=== PATIENT | female | born 1965 | race Caucasian/White ===

== ENCOUNTER → 2017-11-21 15:32 | Outpatient (CLI) | payer SELFPAY ==
[2017-11-21 17:00] LABS: Absolute Lymphocyte Count 1.98 X10^3/ul (0.83-4.51); Absolute Neutrophil Count 3.4 X10^3/uL (2.0-7.7); Basophil# 0.02 X10^3/uL; Basophil% 0.3 % (0-1); Eosinophil# 0.13 X10^3/uL; Eosinophils% 2.2 % (0-5); Hematocrit 39.2 % (37-47); Hemoglobin 13.2 g/dl (12.0-15.0); Lymphocyte # 1.98 X10^3/ul (4.0); Mean Corp Hgb Conc 33.7 g/gl (32-36); Mean Corpuscular Hgb 30.7 pg (27.0-32.0); Mean Corpuscular Volume 91.2 fL (81-99); Mean Platelet Vol. 10.1 fl (6.2-12.0); Monocyte# 0.43 X10^3/uL; Monocyte% 7.2 % (0-10); Neutrophil # 3.43 X10^3/uL (2.7-7.7); Neutrophil % 57.1 % (47-70); Platelet Count 285 K/mm3 (150-450); RBC Distribution Width CV 13.3 % (11.6-14.6)
[2017-11-21 17:09] LABS: POSITIVE COUNT NO; POSITIVE DIFFERENTIAL NO; POSITIVE MORPHOLOGY NO
[2017-11-21 17:20] LABS: ALB/GLOB Ratio 0.9 RATIO (0.9-2.4); AST(SGOT) 32 U/L (15-37); Alanine Aminotransfer ALT/SGPT 67 U/L (13-56); Albumin, Serum 3.8 g/dL (3.2-5.0); Alkaline Phosphatase 119 U/L (45-117); Anion Gap 8 (5-15); BUN 13 mg/dL (7-18); BUN/Creat Ratio 19.5 RATIO (10-20); Calcium,Total 9.2 mg/dL (8.5-10.1); Chloride 105 mmol/L (98-107); Creatinine, Serum 0.67 mg/dL (0.55-1.02); EST Glomerular Filtration Rate 99 mL/min (>60); Est Glom Filt Rate - Afr Amer 119 mL/min (>60); Globulin 4.2 g/dL (2.2-4.2); Glucose 110 mg/dL (74-106); Potassium 3.4 mmol/L (3.5-5.1); Sodium Level 142 mmol/L (136-145); Thyroid Stim Hormone (TSH) 1.35 uIU/mL (0.358-3.74)
[2017-11-22 08:54] LABS: Vitamin D,25 Hydroxy 24.3 ng/mL (19.95-100.01)
[2017-11-23 13:25] LABS: Hep C Antibodies 0.2 s/co ratio (0.0-0.9)
== END ==
PROVIDERS: Family Provider Family Medicine Geriatric Medicine; PCP Family Medicine Geriatric Medicine; Visit Provider Family Medicine Geriatric Medicine
DX: E55.9 Vitamin D deficiency, unspecified (principal); R53.83 Other fatigue; Z13.89 Encounter for screening for other disorder
CPT/HCPCS: 36415; 80053; 82306; 84443; 85025; 86803

== ENCOUNTER → 2017-11-28 09:09 | Outpatient (CLI) | payer SELFPAY ==
--- NOTE | 2017-11-28 09:13 | US_ITS ---
STUDY: ABDOMINAL ULTRASOUND - RIGHT UPPER QUADRANT REASON FOR VISIT: Female, 52 years old. Abnormal liver function tests. TECHNIQUE: Ultrasound evaluation of the right upper quadrant was performed with real-time and static connor-scale imaging. TECHNICAL QUALITY: Adequate. COMPARISON: None. FINDINGS: Liver: The liver measures 13.7 cm. There is normal echogenicity of the liver. The bile ducts are within normal limits. There is hepatic color flow. The direction of portal flow is hepatopetal. There is no demonstrated mass lesion. Gallbladder: Normal distended gallbladder. The gallbladder wall measures 2.0 mm. There is a negative sonographic Pinto's sign. There is no pericholecystic fluid. There are no gallstones. Common Bile Duct (C.B.D.): The common bile duct measures 3.5 mm. Pancreas: Normal size of the head, body and tail of the pancreas. There is normal echogenicity of the pancreas. There is no demonstrated pancreatic mass or cyst. Right Kidney: Normal size of the right kidney. The right kidney measures 10.7 cm x 5.3 cm x 4.8 cm. Normal renal cortex. The right cortex measures 1.5 cm. There is no demonstrated renal mass or cyst. There is no right hydronephrosis. Findings suggestive of 2 small nonobstructive intrarenal calculi the larger measuring 7 mm x 5 mm x 4 mm. US/Abdomen Limited IMPRESSION: Normal right upper quadrant ultrasound examination. Findings suggest left two tiny nonobstructive right intrarenal calculi. Electronically Signed: Remi Lopez MD at 16:06 EST Tel [phone], Service support ,
== END ==
PROVIDERS: Family Provider Family Medicine Geriatric Medicine; PCP Family Medicine Geriatric Medicine; Visit Provider Family Medicine Geriatric Medicine
DX: R79.89 Other specified abnormal findings of blood chemistry (principal)
CPT/HCPCS: 76705

== ENCOUNTER → 2019-10-15 10:59 | Outpatient (CLI) | payer OTHER, SELFPAY ==
[2014-05-10 20:55] VITALS: BMI 24.2
[2019-10-15 12:43] LABS: Absolute Lymphocyte Count 2.12 X10^3/uL (0.83-4.51); Absolute Neutrophil Count 3.7 X10^3/uL (2.0-7.7); Basophil# 0.05 X10^3/uL; Basophil% 0.8 % (0-1); Eosinophil# 0.24 X10^3/uL; Eosinophils% 3.7 % (0-5); Hematocrit 39.5 % (37-47); Hemoglobin 13.1 g/dL (12.0-15.0); Lymphocyte # 2.12 X10^3/ul (4.0); Lymphocyte % 32.5 % (19-41); Mean Corp Hgb Conc 33.2 g/dL (32-36); Mean Corpuscular Hgb 29.5 pg (27.0-32.0); Monocyte% 6.1 % (0-10); NRBC Flagged by Analyzer 0 % (0-5); Neutrophil # 3.69 X10^3/uL (2.7-7.7); Neutrophil % 56.4 % (47-70); Platelet Count 326 K/mm3 (150-450); RBC Distribution Width CV 12.9 % (11.6-14.6); RBC Distribution Width SD 42.1 fl (35.1-43.9); Red Blood Count 4.44 M/mm3 (4.2-5.4); White Blood Count 6.5 K/mm3 (4.4-11.0)
[2019-10-15 13:04] LABS: AST(SGOT) 36 U/L (15-37); Alanine Aminotransfer ALT/SGPT 68 U/L (13-56); Albumin, Serum 3.8 g/dL (3.2-5.0); Alkaline Phosphatase 133 U/L (45-117); Anion Gap 6 (5-15); BUN 15 mg/dL (7-18); BUN/Creat Ratio 17.9 RATIO (10-20); Calcium,Total 9.4 mg/dL (8.5-10.1); Chloride 112 mmol/L (98-107); Creatinine, Serum 0.84 mg/dL (0.55-1.02); EST Glomerular Filtration Rate 76 mL/min (>60); Est Glom Filt Rate - Afr Amer 91 mL/min (>60); Globulin 3.8 g/dL (2.2-4.2); Glucose 94 mg/dL (74-106); Potassium 3.7 mmol/L (3.5-5.1); Protein, Total 7.6 g/dL (6.4-8.2); Sodium Level 144 mmol/L (136-145)
== END ==
PROVIDERS: Family Provider Family Medicine Geriatric Medicine; PCP Family Medicine Geriatric Medicine; Visit Provider Family Medicine Geriatric Medicine
DX: I10 Essential (primary) hypertension (principal)
CPT/HCPCS: 36415; 80053; 84443; 85025

== ENCOUNTER → 2019-12-06 11:01 | Outpatient (CLI) | payer OTHER, SELFPAY ==
--- NOTE | 2019-12-06 11:05 | BI_ITS ---
MAMMOGRAPHY - BILATERAL SCREENING REASON FOR EXAM: Female, 54 years old. Routine annual screening examination. PERTINENT HISTORY: Non-contributory. TECHNIQUE: Digital bilateral breast mariella (3D mammographic acquisition) in the CC and MLO projections. 2-D mediolateral oblique (MLO) and craniocaudad (CC) views of both breasts were obtained. CAD: Full Field Digital Mammography with Computer Added Detection was performed. COMPARISON: Comparison is made with prior examination dated April 29, 2011. FINDINGS: Breast Composition: There are scattered areas of fibroglandular density. There are no dominant masses or suspicious calcifications. No other significant abnormalities are identified. There has been no significant change since the prior study. BI/SCREEN MAMM (CAD) W/MARIELLA BILAT IMPRESSION: Stable bilateral screening mammogram. Yearly follow-up mammogram recommended. (A) ASSESSMENT CATEGORY: BIRADS Category 1: Negative. A letter regarding these results will be sent to the patient by the facility within 30 days. Approximately 10% of breast cancers are not detected by mammography. A normal mammogram should not delay biopsy of a clinically suspicious abnormality. [id number] Electronically Signed: Remi Lopez, at 12:53 EST , Service support ,
== END ==
PROVIDERS: PCP Family Medicine Geriatric Medicine; Referring Provider Family Medicine Geriatric Medicine; Visit Provider Family Medicine Geriatric Medicine
DX: Z12.31 Encounter for screening mammogram for malignant neoplasm of breast (principal)
CPT/HCPCS: 77063; 77067

== ENCOUNTER → 2019-12-06 11:57 | Outpatient (CLI) | payer OTHER, SELFPAY ==
[2014-05-10 20:55] VITALS: BMI 24.2
[2019-12-07 05:07] LABS: HEPATITIS B SURFACE AG Negative (Negative); Hepatitis A AB, Total Negative (Negative); Hepatitis A IgM Antibody Negative (Negative); Hepatitis B Core AB IgM Negative (Negative); Hepatitis B Core Ab Total Negative (Negative); Hepatitis C Ab <0.1 s/co ratio (0.0-0.9)
[2019-12-07 10:12] LABS: Hep B Surface Antibodies Non Reactive (.)
== END ==
PROVIDERS: PCP Family Medicine Geriatric Medicine; Visit Provider Family Medicine Geriatric Medicine
DX: R74.8 Abnormal levels of other serum enzymes (principal)
CPT/HCPCS: 36415; 86704; 86705; 86706; 86708; 86709; 86803; 87340

== ENCOUNTER → 2019-12-12 13:21 | Outpatient (CLI) | payer OTHER, SELFPAY ==
[2014-05-10 20:55] VITALS: BMI 24.2
[2019-12-12 17:10] LABS: ALB/GLOB Ratio 1.1 RATIO (0.9-2.4); AST(SGOT) 14 U/L (15-37); Alanine Aminotransfer ALT/SGPT 31 U/L (13-56); Albumin, Serum 3.9 g/dL (3.2-5.0); Alkaline Phosphatase 113 U/L (45-117); Anion Gap 6 (5-15); BUN 16 mg/dL (7-18); BUN/Creat Ratio 20.3 RATIO (10-20); Calcium,Total 9.3 mg/dL (8.5-10.1); Chloride 109 mmol/L (98-107); Creatinine, Serum 0.79 mg/dL (0.55-1.02); EST Glomerular Filtration Rate 81 mL/min (>60); Est Glom Filt Rate - Afr Amer 98 mL/min (>60); Globulin 3.7 g/dL (2.2-4.2); Glucose 84 mg/dL (74-106); Potassium 3.8 mmol/L (3.5-5.1); Protein, Total 7.6 g/dL (6.4-8.2); Sodium Level 142 mmol/L (136-145)
== END ==
PROVIDERS: PCP Family Medicine Geriatric Medicine; Visit Provider Family Medicine Geriatric Medicine
DX: K76.9 Liver disease, unspecified (principal)
CPT/HCPCS: 36415; 80053

== ENCOUNTER → 2019-12-20 10:53 | Outpatient (CLI) | payer OTHER, SELFPAY ==
[2014-05-10 20:55] VITALS: BMI 24.2
--- NOTE | 2019-12-20 10:58 | US_ITS ---
STUDY: ABDOMINAL ULTRASOUND - RIGHT UPPER QUADRANT REASON FOR VISIT: Female, 54 years old elevated LFTs TECHNIQUE: Ultrasound evaluation of the right upper quadrant was performed with real-time and static connor-scale imaging. TECHNICAL QUALITY: Adequate. COMPARISON: None. FINDINGS: Liver: The liver measures 16.4 cm. There is normal echogenicity of the liver. The bile ducts are within normal limits. There is hepatic color flow. The direction of portal flow is hepatopetal. There is no demonstrated mass lesion. Gallbladder: Normal distended gallbladder. The gallbladder wall measures 2.8 mm. There is a negative sonographic Pinto''s sign. There is no pericholecystic fluid. There are no gallstones. Common Bile Duct (C.B.D.): The common bile duct measures 5.2 mm. Pancreas: Normal size of the head, body and tail of the pancreas. There is normal echogenicity of the pancreas. There is no demonstrated pancreatic mass or cyst. Pancreatic duct measures 4 mm. Right Kidney: Normal size of the right kidney. The right kidney measures 10.7 x 5.8 x 5.3 cm. Normal renal cortex. The right cortex measures 1.8 cm. There is no demonstrated renal mass or cyst. There is no right hydronephrosis, there are nonobstructing renal stones.. US/Abdomen Limited IMPRESSION: Nonobstructing right nephrolithiasis Electronically Signed: Edis Ashley MD at 11:58 EST , Service support ,
== END ==
PROVIDERS: PCP Family Medicine Geriatric Medicine; Referring Provider Family Medicine Geriatric Medicine; Visit Provider Family Medicine Geriatric Medicine
DX: R74.8 Abnormal levels of other serum enzymes (principal)
CPT/HCPCS: 76705

== ENCOUNTER → 2020-10-06 17:06 | Outpatient (CLI) | payer OTHER, SELFPAY | LOC: MTDU 17:06 | PROVIDERS: PCP Family Medicine Geriatric Medicine; Referring Provider Family Medicine Geriatric Medicine; Visit Provider Family Medicine Geriatric Medicine | DX: R06.89 Other abnormalities of breathing (principal) | CPT/HCPCS: 87633; 87635; C9803; U0003 ==

== ENCOUNTER → 2020-12-25 10:28 | Outpatient (CLI) | payer OTHER, SELFPAY ==
[2014-05-10 20:55] VITALS: BMI 24.2
[2020-12-25 12:17] LABS: Absolute Neutrophil Count 8.1 X10^3/uL (2.0-7.7); Basophil# 0.04 X10^3/uL; Basophil% 0.4 % (0-1); Eosinophil# 0.03 X10^3/uL; Eosinophils% 0.3 % (0-5); Hematocrit 44.6 % (37-47); Hemoglobin 14.7 g/dL (12.0-15.0); Lymphocyte % 14.8 % (19-41); Mean Corpuscular Hgb 30.8 pg (27.0-32.0); Mean Corpuscular Volume 93.3 fL (81-99); Mean Platelet Vol. 9.4 fl (6.2-12.0); Monocyte# 0.36 X10^3/uL; Monocyte% 3.5 % (0-10); NRBC Flagged by Analyzer 0 % (0-5); Neutrophil # 8.06 X10^3/uL (2.7-7.7); Neutrophil % 79.3 % (47-70); Platelet Count 379 K/mm3 (150-450); RBC Distribution Width CV 12.8 % (11.6-14.6); RBC Distribution Width SD 44.1 fl (35.1-43.9); Red Blood Count 4.78 M/mm3 (4.2-5.4); White Blood Count 10.2 K/mm3 (4.4-11.0)
[2020-12-25 13:09] LABS: AST(SGOT) 14 U/L (15-37); Alanine Aminotransfer ALT/SGPT 27 U/L (13-56); Alkaline Phosphatase 136 U/L (45-117); Anion Gap 9 (5-15); BUN 12 mg/dL (7-18); BUN/Creat Ratio 15.2 RATIO (10-20); Calcium,Total 9.2 mg/dL (8.5-10.1); Chloride 105 mmol/L (98-107); Creatinine, Serum 0.79 mg/dL (0.55-1.02); EST Glomerular Filtration Rate 81 mL/min (>60); Est Glom Filt Rate - Afr Amer 97 mL/min (>60); Globulin 3.9 g/dL (2.2-4.2); Glucose 101 mg/dL (74-106); Potassium 3.2 mmol/L (3.5-5.1); Protein, Total 7.9 g/dL (6.4-8.2); Sodium Level 142 mmol/L (136-145); Thyroid Stim Hormone (TSH) 0.79 uIU/mL (0.358-3.74)
== END ==
LOC: POLAB3 10:29
PROVIDERS: PCP Family Medicine Geriatric Medicine; Visit Provider Family Medicine Geriatric Medicine
DX: R53.83 Other fatigue (principal)
CPT/HCPCS: 36415; 80053; 84443; 85025

== ENCOUNTER → 2021-01-05 15:23 | Outpatient (CLI) | payer OTHER, SELFPAY ==
[2014-05-10 20:55] VITALS: BMI 24.2
[2021-01-05 17:18] LABS: Anion Gap 5 (5-15); BUN 12 mg/dL (7-18); BUN/Creat Ratio 16.4 RATIO (10-20); Calcium,Total 9.6 mg/dL (8.5-10.1); Chloride 106 mmol/L (98-107); Creatinine, Serum 0.73 mg/dL (0.55-1.02); EST Glomerular Filtration Rate 88 mL/min (>60); Est Glom Filt Rate - Afr Amer 106 mL/min (>60); Glucose 86 mg/dL (74-106); Potassium 3.9 mmol/L (3.5-5.1); Sodium Level 141 mmol/L (136-145)
== END ==
LOC: LAB 15:24
PROVIDERS: PCP Family Medicine Geriatric Medicine; Visit Provider Family Medicine Geriatric Medicine
DX: E87.6 Hypokalemia (principal)
CPT/HCPCS: 36415; 80048

== ENCOUNTER 2021-04-07 10:43 | Emergency (ER) | payer OTHER, SELFPAY ==
[2021-04-07 10:45] VITALS: BP 174/99; PULSE 113; RESP 18; TEMP 36.6; O2SAT 99; BMI 24.7
--- NOTE | 2021-04-07 10:52 | NURSING ---
NO OLD EKGS
--- NOTE | 2021-04-07 11:08 | EKG12_ITS ---
Test Reason : HYPERTENSION Blood Pressure : / mmHG Vent. Rate : 093 BPM Atrial Rate : 093 BPM P-R Int : 152 ms QRS Dur : 068 ms QT Int : 350 ms P-R-T Axes : 052 056 049 degrees QTc Int : 435 ms Normal sinus rhythm Normal ECG Confirmed by ELVIS DU, PIERCE ([id number]), film editor supervisor HAIR SWANN ([id number]) on 04/09/2021 12:45:47 PM Referred By: KAL/GOLDY Confirmed By:PIERCE LEAL MD
--- NOTE | 2021-04-07 11:08 | RAD_ITS ---
STUDY: X-RAY CHEST REASON FOR EXAM: Female, 55 years old. chest pain TECHNIQUE: 1 view COMPARISON: None. FINDINGS: The lungs are clear and expanded. There is calcification in the upper lobe on the right side consistent with granuloma.. There is no demonstrated pleural abnormality. Normal size heart. Normal mediastinum and vincent. Normal visualized pulmonary arteries. Normal visualized aortic arch and descending thoracic aorta. Normal visualized thoracic spine. Normal visualized ribs, clavicles, and shoulders. There is no demonstrated abnormality of the visualized soft tissue structures of the upper abdomen. RAD/Chest 1 View (Portable) IMPRESSION: Normal x-ray examination of the chest. Electronically Signed: Melecio Denis, at 11:58 EDT Tel , Service support ,
--- NOTE | 2021-04-07 11:18 | EX.ED.DYSGE1 ---
HPI History of Present Illness Chief Complaint: Hypertension Narrative Narrative: 55-year-old female presenting with palpitations and elevated blood pressure. She states that she is never had high blood pressure before. She is noted this is been elevated for the last 24 hours. She states she has had several runs of palpitations as well. She does not have any chest pain. She is not short of breath. She is not had a fever or chills. No history of DVT/PE. PFSH PFS Medical History Anxiety Migraines Home Medications Lactobacillus acidophilus 1 tab PO DAILY 12/18/13 [History Last Taken 12/18/13] aspirin 81 mg PO DAILY@0800 12/18/13 [History Last Taken 12/18/13] multivitamin with iron 1 ea PO DAILY 12/18/13 [History Last Taken 12/18/13] lisinopril 20 mg PO X1 #1 tab 04/07/21 [Rx Last Taken Unknown] potassium chloride 20 meq PO DAILY 04/07/21 [History Last Taken Unknown] Allergy/AdvReac Type Severity Reaction Status Date / Time No Known Allergies Allergy Verified 04/07/21 10:50 Social History Smoking Status: Never smoker ROS ROS ED Constitutional Constitutional ED: Denies chills or fever(s) Eyes Eyes: Denies blurry vision or change in vision ENT ENT ED: Denies ear pain, rhinorrhea or sore throat Cardiovascular Cardiovascular: Reports palpitations and racing heartbeat; Denies chest pain Respiratory/Chest Respiratory/Chest: Denies cough or dyspnea Gastrointestinal Gastrointestinal: Denies abdominal pain, nausea or vomiting Genitourinary Genitourinary ED: Denies dysuria or hematuria Musculoskeletal Musculoskeletal: Denies arthralgias or myalgias Integumentary Denies abscess or rash EXAM Physical Exam Const Vital Signs: 04/07/21 10:45 04/07/21 10:52 04/07/21 11:40 Temperature 97.9 F Temperature Source Temporal Pulse Rate 113 H Respiratory Rate 18 Respiratory Effort Normal Blood Pressure 174/99 H Blood Pressure Mean 124 Pulse Ox 99 Oxygen Delivery Method Room Air Room Air 04/07/21 12:05 04/07/21 13:28 Temperature Temperature Source Pulse Rate 70 Respiratory Rate 18 Respiratory Effort Blood Pressure 166/95 H 133/67 H Blood Pressure Mean 118 Pulse Ox Oxygen Delivery Method Positive well nourished General Appearance ED: NAD HEENT Reports moist mucous membranes Negative for trauma Eyes PERRL and EOMs intact bilaterally Neck no lymphadenopathy and supple Resp normal respiratory effort and clear to auscultation bilaterally Cardio regular rhythm Rate: tachycardic Extremity normal to inspection General Extremety ED: Negative for edema General Extremity: Negative for edema Neuro oriented x3 and CN's II-XII intact bilaterally Sensorium / Orientation: alert Psych mental status grossly normal Mood & Affect: anxious Skin no rashes or lesions noted and no wounds MDM MDM MDM Narrative Medical decision making narrative: Patient presented with palpitations and stating that her blood pressure is higher than usual. She has never had a blood pressure issue. She denies out right chest pain. EKG performed on arrival sinus rhythm at 93 bpm without signs of ischemic change as interpreted by myself. One-view portable chest shows no acute cardiopulmonary process as interpreted by myself. The radiologist does agree. Patient's lab work is normal with exception of mildly low potassium at 3.3. She has medication at home for this and states he has not taken her medication today.. Her troponin is negative. Her D-dimer is negative. She was given a dose of labetalol and her blood pressure has come down to 133/67. I spoke with Dr. Gutierrez regarding the patient to see if he want me to start her on a medication. He states that he will just see her in office tomorrow and start her on blood pressure medication himself. Patient was counseled on all findings and feels improved. Patient was concerned that she might have elevated blood pressure overnight and I did school counsellor her that he would want to see what her blood pressure is naturally so he knows how much medication to give or what kind to give. She was very concerned that she might start feeling bad again if her blood pressure went up. She states I do not want her to come back to the emergency room. I gave her 1 dose of lisinopril that she can take if she feels like her pressures going up. I did school counsellor her at length that it would be better for her primary care if she just abstain from using it that way he can get a normal blood sugar reading tomorrow. She acknowledged understanding. Depression: 1. Hypertension?new 2. Palpitations Lab Data Attestation: I reviewed the patient's lab results. Labs: Laboratory Results - last 24 hr 04/07/21 04/07/21 04/07/21 10:25 10:25 10:25 WBC 8.6 RBC 4.91 Hgb 15.0 Hct 45.2 MCV 92.1 MCH 30.5 MCHC 33.2 RDW Std Deviation 43.0 RDW Coeff of Cm 12.7 Plt Count 353 MPV 9.6 Immature Gran % (Auto) 0.400 Neut % (Auto) 59.6 Lymph % (Auto) 33.5 [place] % (Auto) 4.9 Eos % (Auto) 1.1 Baso % (Auto) 0.5 Absolute Neuts (auto) 5.1 Absolute Lymphs (auto) 2.87 Nucleated RBC % 0 D-Dimer Quant (PE/DVT) <= 0.27 Sodium 141 Potassium 3.3 L Chloride 106 Carbon Dioxide 30.0 Anion Gap 5 BUN 12 Creatinine 0.81 Estim Creat Clear Calc 73.46 Est GFR (MDRD) Af Amer 94 Est GFR (MDRD) Non-Af 78 BUN/Creatinine Ratio 14.8 Glucose 120 H Calcium 9.7 Troponin I High Sens 4.3 Radiography Diagnostic Testing: Radiology Impression Chest X-Ray 04/07/21 11:08 IMPRESSION: Normal x-ray examination of the chest. Electronically Signed: Melecio Denis, at 11:58 EDT Tel , Service support , Discharge Plan Triage Chief Complaint: Hypertension ED Provider: Ilan Valdes Dx/Rx/DC Orders Instructions: ED High Blood Pressure Hypertension Prescriptions: New lisinopril 20 mg tablet 20 mg PO X1 Qty: 1 RF: 0 No Action aspirin 81 MG tablet 81 mg PO DAILY@0800 RF: 0 multivitamin with iron 1 EACH tablet 1 ea PO DAILY RF: 0 Lactobacillus acidophilus 1 EACH tablet 1 tab PO DAILY RF: 0 potassium chloride 20 mEq tablet,ER particles/crystals 20 meq PO DAILY RF: 0 Primary Care Provider: Faraz Gutierrez Chi Referrals: Faraz Gutierrez Chi, MD [Primary Care Provider] - Disposition Disposition: Home, Self Care Discharge Date/Time: 04/07/21 13:46
[2021-04-07 11:37] LABS: Absolute Lymphocyte Count 2.87 X10^3/uL (0.83-4.51); Absolute Neutrophil Count 5.1 X10^3/uL (2.0-7.7); Basophil# 0.04 X10^3/uL; Basophil% 0.5 % (0-1); Eosinophil# 0.09 X10^3/uL; Eosinophils% 1.1 % (0-5); Hematocrit 45.2 % (37-47); Lymphocyte # 2.87 X10^3/ul (0.83-4.51); Lymphocyte % 33.5 % (19-41); Mean Corp Hgb Conc 33.2 g/dL (32-36); Mean Corpuscular Hgb 30.5 pg (27.0-32.0); Mean Corpuscular Volume 92.1 fL (81-99); Mean Platelet Vol. 9.6 fl (6.2-12.0); Monocyte# 0.42 X10^3/uL; Monocyte% 4.9 % (0-10); NRBC Flagged by Analyzer 0 % (0-5); Neutrophil # 5.11 X10^3/uL (2.7-7.7); Neutrophil % 59.6 % (47-70); Platelet Count 353 K/mm3 (150-450); RBC Distribution Width CV 12.7 % (11.6-14.6); Red Blood Count 4.91 M/mm3 (4.2-5.4); White Blood Count 8.6 K/mm3 (4.4-11.0)
[2021-04-07] MEDS: Labetalol (Prefilled) 20 MG/4 ML IV (11:51)
[2021-04-07 11:55] LABS: Anion Gap 5 (5-15); BUN 12 mg/dL (7-18); BUN/Creat Ratio 14.8 RATIO (10-20); Calcium,Total 9.7 mg/dL (8.5-10.1); Chloride 106 mmol/L (98-107); Creatinine, Serum 0.81 mg/dL (0.55-1.02); D-Dimer Quantitative (DVT/PE) <= 0.27 FEU/ug/m (0.27-0.49); EST Glomerular Filtration Rate 78 mL/min (>60); Est Glom Filt Rate - Afr Amer 94 mL/min (>60); Estimated Creatinine Clearance 73.46 ml/min; Glucose 120 mg/dL (74-106); Potassium 3.3 mmol/L (3.5-5.1); Sodium Level 141 mmol/L (136-145); Troponin-I HS 4.3 pg/mL (3.0-53.7)
[2021-04-07 12:05] VITALS: BP 166/95
[2021-04-07 13:28] VITALS: BP 133/67; PULSE 70; RESP 18
== END 2021-04-07 13:46 | disposition home or self-care (01) ==
PROVIDERS: Emergency Provider Student in an Organized Health Care Education/Training Program; PCP Family Medicine Geriatric Medicine
DX: I10 Essential (primary) hypertension (principal); R00.2 Palpitations; F41.9 Anxiety disorder, unspecified; G43.909 Migraine, unspecified, not intractable, without status migrainosus; Z79.82 Long term (current) use of aspirin; Z79.899 Other long term (current) drug therapy
CPT/HCPCS: 71045; 80048; 84484; 85025; 85379; 93005; 96374; 99285; A4216

== ENCOUNTER 2021-04-08 11:43 | Emergency (ER) | payer OTHER, SELFPAY ==
[2021-04-07 10:45] VITALS: BMI 24.7
[2021-04-08 11:47] VITALS: BP 184/117; PULSE 107; RESP 15; TEMP 36.3; O2SAT 99; BMI 25.4
[2021-04-08 12:13] VITALS: BP 175/87; PULSE 90; RESP 14; O2SAT 97
[2021-04-08 12:16] VITALS: BP 134/86; PULSE 87
--- NOTE | 2021-04-08 12:37 | EDS_ITS ---
HPI History of Present Illness Chief Complaint: Hypertension Informant: patient Narrative Narrative: Patient is a 55-year-old female who presents to the emergency department for elevated blood pressure. She was seen for the same complaint yesterday. Patient states that she does have an appointment with her PCP today but wanted to get checked out because her blood pressure was continuing to rise. She states that she was checking her blood pressure recently because she was having some dizziness at home. She did have some epigastric discomfort that was worsened with any pressure to the area. Patient denies any history of hypertension before. She states she does have a lot of home stressors currently. She was given a IV dose of blood pressure medication and sent home with a lisinopril to only take as needed. She had an appointment scheduled at 230 with her PCP today. Patient states she forgot to take her blood pressure medicine. At home her blood pressure was rising up to 170 systolic. She is currently denying any dizziness, chest pain, shortness of breath or heart palpitations. [facility] Medical History (Updated 04/08/21 @ 12:[address] Andrea Davis DO) Anxiety HTN (hypertension) Migraines Home Medications Lactobacillus acidophilus 1 tab PO DAILY 12/18/13 [History Last Taken 12/18/13] aspirin 81 mg PO DAILY@0800 12/18/13 [History Last Taken 12/18/13] multivitamin with iron 1 ea PO DAILY 12/18/13 [History Last Taken 12/18/13] potassium chloride 20 meq PO DAILY 04/07/21 [History Last Taken Unknown] lisinopril 20 mg PO X1 04/08/21 [History Last Taken Unknown] Allergy/AdvReac Type Severity Reaction Status Date / Time No Known Allergies Allergy Verified 04/08/21 11:48 Social History Smoking Status: Never smoker ROS ROS ED Constitutional Constitutional ED: Denies chills or fever(s) Eyes Eyes: Denies change in vision ENT ENT ED: Denies epistaxis or rhinorrhea Cardiovascular Cardiovascular: Denies chest pain or palpitations Respiratory/Chest Respiratory/Chest: Denies cough, dyspnea or dyspnea on exertion Gastrointestinal Gastrointestinal: Denies abdominal pain, diarrhea, nausea or vomiting Musculoskeletal Musculoskeletal: Denies back pain or neck pain Integumentary Denies rash Neurologic Neurologic: Denies dizziness, headache(s) or weakness EXAM Physical Exam Const Vital Signs: 04/08/21 11:47 04/08/21 12:13 04/08/21 12:14 Temperature 97.3 F L Temperature Source Temporal Pulse Rate 107 H 90 Respiratory Rate 15 14 Respiratory Effort Normal Non-Labored Respiratory Pattern Normal Blood Pressure 184/117 H 175/87 H Blood Pressure Mean 139 116 Pulse Ox 99 97 Oxygen Delivery Method Room Air Room Air 04/08/21 12:16 Temperature Temperature Source Pulse Rate 87 Respiratory Rate Respiratory Effort Respiratory Pattern Blood Pressure 134/86 H Blood Pressure Mean 102 Pulse Ox Oxygen Delivery Method Positive well nourished and well developed General Appearance ED: well developed and NAD HEENT Reports normocephalic, head/scalp atraumatic and moist mucous membranes Eyes PERRL and EOMs intact bilaterally Neck supple Chest Wall inspection of chest normal Resp normal respiratory effort and clear to auscultation bilaterally Auscultation: Negative for rales, rhonchi or wheezes Cardio regular rate, regular rhythm and no murmurs GI normal to inspection, nondistended, normoactive bowel sounds and non-tender Palpation: soft; Negative for rebound tenderness present Extremity normal to inspection General Extremety ED: Negative for edema or tenderness General Extremity: Negative for edema Neuro oriented x3, CN's II-XII intact bilaterally and no sensory deficits noted Sensorium / Orientation: alert Motor Exam: strength 5/5 throughout Psych mental status grossly normal Skin no rashes or lesions noted MDM MDM MDM Narrative Medical decision making narrative: Patient presents to the ED for elevated blood pressure. Patient had extensive work-up performed yesterday. This only showed mild hypokalemia. On arrival to the emergency department she is hypertensive but this does return to a normal pressure throughout ED stay without any treatment. She actually is an appointment in 2 hours with her PCP I did recommend she keep this appointment. I do not recommend any treatment at this time as she is asymptomatic. The PCP can start her on the blood pressure that they recommend. At this time she is stable for discharge. No work-up is indicated at this time. Return precautions are reviewed with the patient. She understands and is agreeable this plan. All questions are answered. Discharge Plan Triage Chief Complaint: Hypertension ED Provider: Andrea Davis Dx/Rx/DC Orders Clinical Impression: Elevated blood pressure reading Instructions: ED High Blood Pressure Hypertension Prescriptions: No Action aspirin 81 MG tablet 81 mg PO DAILY@0800 RF: 0 multivitamin with iron 1 EACH tablet 1 ea PO DAILY RF: 0 Lactobacillus acidophilus 1 EACH tablet 1 tab PO DAILY RF: 0 potassium chloride 20 mEq tablet,ER particles/crystals 20 meq PO DAILY RF: 0 lisinopril 20 mg tablet 20 mg PO X1 RF: 0 Primary Care Provider: Faraz Gutierrez Chi Referrals: Faraz Gutierrez Chi, MD [Primary Care Provider] - (Keep appointment today) Disposition Disposition: Home, Self Care
[2021-04-08 12:51] VITALS: BP 152/91; PULSE 78; RESP 12; O2SAT 98
== END 2021-04-08 12:52 | disposition home or self-care (01) ==
LOC: ED 12:25
PROVIDERS: Emergency Provider Emergency Medicine; PCP Family Medicine Geriatric Medicine
DX: R03.0 Elevated blood-pressure reading, without diagnosis of hypertension (principal); E87.6 Hypokalemia; F41.9 Anxiety disorder, unspecified; G43.909 Migraine, unspecified, not intractable, without status migrainosus; Z79.82 Long term (current) use of aspirin; Z79.899 Other long term (current) drug therapy
CPT/HCPCS: 99284

== ENCOUNTER → 2021-04-22 15:17 | Outpatient (CLI) | payer OTHER, SELFPAY ==
[2021-04-08 11:47] VITALS: BMI 25.4
[2021-04-22 15:59] LABS: Anion Gap 6 (5-15); BUN 17 mg/dL (7-18); BUN/Creat Ratio 23.4 RATIO (10-20); Calcium,Total 9.4 mg/dL (8.5-10.1); Chloride 103 mmol/L (98-107); Creatinine, Serum 0.72 mg/dL (0.55-1.02); EST Glomerular Filtration Rate 89 mL/min (>60); Est Glom Filt Rate - Afr Amer 107 mL/min (>60); Glucose 95 mg/dL (74-106); Potassium 3.7 mmol/L (3.5-5.1); Sodium Level 142 mmol/L (136-145)
== END ==
PROVIDERS: PCP Family Medicine Geriatric Medicine; Visit Provider Family Medicine Geriatric Medicine
DX: I10 Essential (primary) hypertension (principal)
CPT/HCPCS: 36415; 80048

== ENCOUNTER 2021-07-09 09:40 | Emergency (ER) | payer OTHER, SELFPAY ==
[2021-07-09 09:42] VITALS: BP 157/88; PULSE 108; RESP 16; TEMP 36.4; O2SAT 100; BMI 24.4
--- NOTE | 2021-07-09 10:18 | EKG12_ITS ---
Test Reason : PALPS Blood Pressure : / mmHG Vent. Rate : 099 BPM Atrial Rate : 099 BPM P-R Int : 154 ms QRS Dur : 080 ms QT Int : 354 ms P-R-T Axes : 060 049 021 degrees QTc Int : 454 ms Normal sinus rhythm Normal ECG Confirmed by INO DU, LOULOU ([id number]), design editor HAIR SWANN ([id number]) on 07/12/2021 11:39:47 AM Referred By: MARJORIE Confirmed By:LOULOU MCKINNON MD
--- NOTE | 2021-07-09 10:18 | RAD_ITS ---
STUDY: X-RAY CHEST REASON FOR EXAM: Female, 55 years old. Palpitations TECHNIQUE: Single AP portable view of the chest. COMPARISON: Comparison is made with prior examination dated 04/07/2021. FINDINGS: The lungs are clear and expanded. There is no demonstrated pleural abnormality. Normal size heart. Normal mediastinum and vincent. Normal visualized pulmonary arteries. Normal visualized aortic arch and descending thoracic aorta. Normal visualized thoracic spine. Normal visualized ribs, clavicles, and shoulders. There is no demonstrated abnormality of the visualized soft tissue structures of the upper abdomen. RAD/Chest 1 View (Portable) IMPRESSION: Normal x-ray examination of the chest. Electronically Signed: Remi Lopez MD at 10:46 EDT , Service support ,
--- NOTE | 2021-07-09 10:23 | EDS_ITS ---
HPI History of Present Illness Chief Complaint: Palpitations Informant: patient Narrative Narrative: Patient is a 55-year-old female present with palpitations. Patient states she was seen in the ER about a month ago for similar presentation. At that time her blood pressure was little elevated her potassium was a little low. She was started on potassium supplements. She notes over this past week she has had palpitations every morning. She saw her PCP earlier this week and her heart rate was a little elevated as well as her blood pressure. He thought it could be whitecoat syndrome. Patient was started on lisinopril and is on potassium supplements. She notes every morning this week she has had palpitations. She continued to have this morning so she came in to be evaluated further. She denies any associated chest pain. She did have diarrhea last week and after eating a very heavy meal and is not sure if this could be related. No report of any fever or chills. No swelling of her legs. No history of DVT or PE. No other complaints at this time. [facility] Medical History Anxiety HTN (hypertension) Migraines Home Medications aspirin 81 mg PO DAILY@0800 12/18/13 [History Last Taken 12/18/13] potassium chloride 20 meq PO DAILY 04/07/21 [History Last Taken Unknown] valsartan-hydrochlorothiazide 1 tab PO DAILY 07/09/21 [History Last Taken Unknown] Allergy/AdvReac Type Severity Reaction Status Date / Time codeine AdvReac Nausea/Vom/ Verified 07/09/21 09:42 Diarrhea morphine AdvReac Nausea/Vom/ Verified 07/09/21 09:42 Diarrhea Social History Smoking Status: Never smoker ROS ROS ED Constitutional Constitutional ED: Denies chills or fever(s) Eyes Eyes: Denies change in vision ENT ENT ED: Denies ear pain or sore throat Cardiovascular Cardiovascular: Reports palpitations and racing heartbeat; Denies chest pain Respiratory/Chest Respiratory/Chest: Denies cough or dyspnea Gastrointestinal Gastrointestinal: Reports diarrhea; Denies abdominal pain, nausea or vomiting Genitourinary Genitourinary ED: Denies dysuria Musculoskeletal Musculoskeletal: Denies arthralgias or myalgias Integumentary Denies rash Neurologic Neurologic: Denies headache(s) or weakness Psychiatric Psychiatric: Denies anxiety or depression EXAM Physical Exam Const Vital Signs: 07/09/21 09:42 07/09/21 11:00 07/09/21 11:02 Temperature 97.5 F L Temperature Source Temporal Pulse Rate 108 H 95 Respiratory Rate 16 Respiratory Effort Normal Non-Labored Blood Pressure 157/88 H 168/100 H Blood Pressure Mean 111 122 Pulse Ox 100 Oxygen Delivery Method Room Air Room Air 07/09/21 12:19 Temperature Temperature Source Pulse Rate 93 Respiratory Rate 20 H Respiratory Effort Blood Pressure 131/80 H Blood Pressure Mean Pulse Ox 98 Oxygen Delivery Method Positive well nourished and well developed General Appearance ED: well developed HEENT Reports moist mucous membranes Eyes PERRL and EOMs intact bilaterally Neck supple and no JVD Chest Wall inspection of chest normal Resp normal respiratory effort and clear to auscultation bilaterally Cardio regular rate and no murmurs Rate: tachycardic GI normal to inspection, nondistended, normoactive bowel sounds and non-tender Palpation: soft Extremity normal to inspection General Extremety ED: Negative for edema or tenderness General Extremity: Negative for edema Neuro oriented x3 and no sensory deficits noted Sensorium / Orientation: alert Motor Exam: Negative for general weakness Psych mental status grossly normal Mood & Affect: anxious Skin no rashes or lesions noted and no wounds MDM MDM MDM Narrative Medical decision making narrative: Patient evaluated for continued palpitations for the past week. She appears nontoxic no acute distress. She is mildly tachycardic in the emergency room with heart rates less than 120. Her she is mildly hypertensive but this improved without any intervention. She does appear anxious. Cardiac work-up is normal. D-dimer is negative and I do not suspect a PE. Her potassium is mildly low at 3.3 however her magnesium is normal. She is given oral potassium replacement in the ER and instructed to increase her home potassium. TSH is normal. Discussed with Dr. Singh and Holter monitors placed for the patient for further evaluation of her palpitations. At this time with her work-up being so normal I do think she is stable for outpatient follow-up. She is instructed to follow-up with her PCP. Patient is counseled on signs and symptoms requiring return to the emergency room. Patient verbalizes agreement and understand this plan. Patient discharged home in stable and improved condition. Lab Data Labs: Laboratory Results - last 24 hr 07/09/21 07/09/21 07/09/21 10:40 10:40 10:40 WBC 11.8 H RBC 4.84 Hgb 14.9 Hct 44.1 MCV 91.1 MCH 30.8 MCHC 33.8 RDW Std Deviation 42.7 RDW Coeff of Cm 12.8 Plt Count 338 MPV 9.2 Immature Gran % (Auto) 0.300 Neut % (Auto) 87.2 H Lymph % (Auto) 9.0 L [place] % (Auto) 3.1 Eos % (Auto) 0.1 Baso % (Auto) 0.3 Absolute Neuts (auto) 10.3 H Absolute Lymphs (auto) 1.06 Nucleated RBC % 0 D-Dimer Quant (PE/DVT) <= 0.27 Sodium 138 Potassium 3.3 L Chloride 105 Carbon Dioxide 30.0 Anion Gap 3 L BUN 14 Creatinine 0.64 Estim Creat Clear Calc 92.98 Est GFR (MDRD) Af Amer 124 Est GFR (MDRD) Non-Af 103 BUN/Creatinine Ratio 22.0 H Glucose 131 H Calcium 9.9 Magnesium 2.3 Troponin I High Sens 6 TSH 1.06 Radiography Chest X-Ray - ED: 1 View, Read by ED Physician, Read by Radiologist and Normal Diagnostic Testing: Radiology Impression Chest X-Ray 07/09/21 10:18 IMPRESSION: Normal x-ray examination of the chest. Electronically Signed: Remi Lopez MD at 10:46 EDT , Service support , Rhythm Strip Rhythm Strip: Sinus Rhythm Rate: 99 Ectopy: None EKG Initial EKG: Attestation: I personally reviewed and interpreted this EKG as follows: Interpretation: Sinus Rhythm Comments: Normal sinus rhythm rate 99 Normal axis Normal intervals Normal ST segments Nonspecific T wave inversion in lead III and aVR, may be normal variants No change clear to prior EKG on 04/07/2021 Follow-up EKG: Attestation: I personally reviewed and interpreted this EKG as follows: Interpretation: Sinus Arrythmia Comments: Normal sinus rhythm with sinus arrhythmia Normal axis Rate of 86 Normal intervals Besides sinus arrhythmia patient has no other acute changes compared to prior EKG Discharge Plan Triage Chief Complaint: Palpitations ED Provider: Shanae Roberts Dx/Rx/DC Orders Clinical Impression: Heart palpitations, Hypokalemia Instructions: ED Palpitations Prescriptions: No Action aspirin 81 MG tablet 81 mg PO DAILY@0800 RF: 0 potassium chloride 20 mEq tablet,ER particles/crystals 20 meq PO DAILY RF: 0 valsartan-hydrochlorothiazide 80-12.5 mg tablet 1 tab PO DAILY RF: 0 Primary Care Provider: Faraz Gutierrez Chi Referrals: Faraz Gutierrez Chi, MD [Primary Care Provider] - Activity Restrictions/Additional Instructions: He will be set up with a Holter monitor today. Please follow-up with your primary care doctor for further evaluation of your palpitations. Double up on your potassium supplements for the next 3 days potassium is mildly low. The remainder of your work-up is normal. Disposition Disposition: Home, Self Care Discharge Date/Time: 07/09/21 12:28
[2021-07-09 10:49] LABS: Absolute Lymphocyte Count 1.06 X10^3/uL (0.83-4.51); Absolute Neutrophil Count 10.3 X10^3/uL (2.0-7.7); Basophil# 0.04 X10^3/uL; Basophil% 0.3 % (0-1); Eosinophil# 0.01 X10^3/uL; Eosinophils% 0.1 % (0-5); Hematocrit 44.1 % (37-47); Hemoglobin 14.9 g/dL (12.0-15.0); Lymphocyte # 1.06 X10^3/ul (0.83-4.51); Mean Corp Hgb Conc 33.8 g/dL (32-36); Mean Corpuscular Hgb 30.8 pg (27.0-32.0); Mean Corpuscular Volume 91.1 fL (81-99); Mean Platelet Vol. 9.2 fl (6.2-12.0); Monocyte# 0.37 X10^3/uL; Monocyte% 3.1 % (0-10); NRBC Flagged by Analyzer 0 % (0-5); Neutrophil # 10.31 X10^3/uL (2.7-7.7); Neutrophil % 87.2 % (47-70); Platelet Count 338 K/mm3 (150-450); RBC Distribution Width CV 12.8 % (11.6-14.6); RBC Distribution Width SD 42.7 fl (35.1-43.9); Red Blood Count 4.84 M/mm3 (4.2-5.4); White Blood Count 11.8 K/mm3 (4.4-11.0)
[2021-07-09] MEDS: 0.9% Normal Saline 1,000 ML 150 ML IV (10:59)
[2021-07-09] MEDS: Aspirin 81 MG TAB.CHEW 324 MG PO (10:59)
[2021-07-09 11:00] VITALS: BP 168/100; PULSE 95
[2021-07-09 11:00] LABS: D-Dimer Quantitative (DVT/PE) <= 0.27 FEU/ug/m (0.27-0.49)
[2021-07-09 11:13] LABS: Anion Gap 3 (5-15); BUN 14 mg/dL (7-18); Calcium,Total 9.9 mg/dL (8.5-10.1); Chloride 105 mmol/L (98-107); Creatinine, Serum 0.64 mg/dL (0.55-1.02); EST Glomerular Filtration Rate 103 mL/min (>60); Est Glom Filt Rate - Afr Amer 124 mL/min (>60); Estimated Creatinine Clearance 92.98 ml/min; Glucose 131 mg/dL (74-106); Magnesium 2.3 mg/dL (1.6-2.6); Potassium 3.3 mmol/L (3.5-5.1); Sodium Level 138 mmol/L (136-145); Thyroid Stim Hormone (TSH) 1.06 uIU/mL (0.358-3.74); Troponin-I HS 6 pg/mL (3.0-54.0)
--- NOTE | 2021-07-09 11:30 | EKG12_ITS ---
Test Reason : REPEAT-PALPS Blood Pressure : / mmHG Vent. Rate : 086 BPM Atrial Rate : 086 BPM P-R Int : 146 ms QRS Dur : 082 ms QT Int : 386 ms P-R-T Axes : 034 041 027 degrees QTc Int : 461 ms Normal sinus rhythm with sinus arrhythmia Normal ECG When compared with ECG of 09-JUL-2021 10:09, MANUAL COMPARISON REQUIRED, DATA IS UNCONFIRMED Confirmed by ELVIS DU, PIERCE ([id number]), manuscript editor HAIR SWANN ([id number]) on 07/14/2021 11:13:47 AM Referred By: MARJORIE Confirmed By:PIERCE LEAL MD
[2021-07-09] MEDS: Potassium Chloride Oral Tablet 20 MEQ PO (12:18)
[2021-07-09 12:19] VITALS: BP 131/80; PULSE 93; RESP 20; O2SAT 98
--- NOTE | 2021-07-09 12:26 | ED.RN ---
THIS NURSE REVIEWED D/C INSTRUCTIONS WITH PT. PT VERBALIZED UNDERSTANDING OF INSTRUCTIONS. IV D/C. IV CATHETER INTACT. PT TOLERATED WELL. PT DENIES FURTHER NEEDS OR QUESTIONS AT THIS TIME.
== END 2021-07-09 12:28 | disposition home or self-care (01) ==
PROVIDERS: Emergency Provider Emergency Medicine; PCP Family Medicine Geriatric Medicine
DX: R00.2 Palpitations (principal); E87.6 Hypokalemia; I10 Essential (primary) hypertension; F41.9 Anxiety disorder, unspecified; G43.909 Migraine, unspecified, not intractable, without status migrainosus; Z79.82 Long term (current) use of aspirin; Z79.899 Other long term (current) drug therapy
CPT/HCPCS: 71045; 80048; 83735; 84443; 84484; 85025; 85379; 93005; 96360; 99284; J7030

== ENCOUNTER → 2021-07-09 12:25 | Outpatient (CLI) | payer OTHER, SELFPAY | PROVIDERS: PCP Family Medicine Geriatric Medicine; Referring Provider Emergency Medicine; Visit Provider Specialist | DX: R00.2 Palpitations (principal) | CPT/HCPCS: 93225; 93226 ==

== ENCOUNTER → 2021-07-13 16:57 | Outpatient (CLI) | payer OTHER, SELFPAY ==
[2021-07-13 17:26] LABS: Anion Gap 9 (5-15); BUN 12 mg/dL (7-18); Calcium,Total 9.9 mg/dL (8.5-10.1); Chloride 104 mmol/L (98-107); EST Glomerular Filtration Rate 110 mL/min (>60); Est Glom Filt Rate - Afr Amer 133 mL/min (>60); Glucose 110 mg/dL (74-106); Potassium 3.7 mmol/L (3.5-5.1); Sodium Level 141 mmol/L (136-145)
== END ==
PROVIDERS: PCP Family Medicine Geriatric Medicine; Visit Provider Family Medicine Geriatric Medicine
DX: I10 Essential (primary) hypertension (principal)
CPT/HCPCS: 36415; 80048

== ENCOUNTER 2021-08-11 16:13 | Emergency (ER) | payer OTHER, SELFPAY ==
[2021-08-11 16:14] VITALS: BP 176/101; PULSE 115; RESP 18; TEMP 36.4; O2SAT 100; BMI 24.2
[2021-08-11 16:29] VITALS: BP 168/84; PULSE 93; RESP 18; O2SAT 99
--- NOTE | 2021-08-11 16:34 | EKG12_ITS ---
Test Reason : PALPS Blood Pressure : / mmHG Vent. Rate : 100 BPM Atrial Rate : 100 BPM P-R Int : 196 ms QRS Dur : 068 ms QT Int : 346 ms P-R-T Axes : 058 052 033 degrees QTc Int : 446 ms Normal sinus rhythm Nonspecific ST abnormality Abnormal ECG Confirmed by INO DU, LOULOU ([id number]), senior technical editor HAIR SWANN ([id number]) on 08/13/2021 9:31:03 AM Referred By: ANGEL/ELENA Confirmed By:LOULOU MCKINNON MD
--- NOTE | 2021-08-11 16:45 | EDS_ITS ---
HPI History of Present Illness Chief Complaint: Palpitations Narrative Narrative: 55-year-old female with history of hypertension, anxiety, hypokalemia presenting with palpitations. Patient states that she has been feeling these for a couple of days. Patient does admit to a couple of days of diarrhea. She has nausea without vomiting. She is been able to eat and drink normally. She is making normal urine. She denies any fever, cough, chills. Patient does states that she is had some anxiety due to the recent loss of her mother. She is also concerned that her potassium might be low. Patient states she is currently taking metoprolol twice daily as well as her valsartan hydroc hlorothiazide. She denies any cardiac history. [facility] Medical History Anxiety HTN (hypertension) Migraines Home Medications aspirin 81 mg PO DAILY@0800 12/18/13 [History Last Taken 12/18/13] potassium chloride 20 meq PO DAILY 04/07/21 [History Last Taken Unknown] valsartan-hydrochlorothiazide 1 tab PO DAILY 07/09/21 [History Last Taken Unknown] Allergy/AdvReac Type Severity Reaction Status Date / Time codeine AdvReac Nausea/Vom/ Verified 08/11/21 16:17 Diarrhea morphine AdvReac Nausea/Vom/ Verified 08/11/21 16:17 Diarrhea Social History Smoking Status: Never smoker [facility] ED Constitutional Constitutional ED: Denies chills, fever(s) or sweats Eyes Eyes: Denies blurry vision or diplopia ENT ENT ED: Denies rhinorrhea or sore throat Cardiovascular Cardiovascular: Reports palpitations and racing heartbeat; Denies chest pain Respiratory/Chest Respiratory/Chest: Denies cough, dyspnea or dyspnea on exertion Gastrointestinal Gastrointestinal: Reports diarrhea and nausea; Denies abdominal pain, constipation, melena or vomiting Genitourinary Genitourinary ED: Denies dysuria or hematuria Musculoskeletal Musculoskeletal: Denies arthralgias, myalgias or neck pain Integumentary Denies Abrasions or rash Neurologic Neurologic: Denies headache(s) or paresthesias Psychiatric Psychiatric: Reports anxiety and depression; Denies suicidal ideation or suicidal thoughts EXAM Physical Exam Const Vital Signs: 08/11/21 16:14 08/11/21 16:29 08/11/21 16:30 Temperature 97.6 F L Temperature Source Temporal Pulse Rate 115 H 93 Respiratory Rate 18 18 Respiratory Effort Normal Non-Labored Blood Pressure 176/101 H 168/84 H Blood Pressure Mean 126 112 Pulse Ox 100 99 Oxygen Delivery Method Room Air Room Air 08/11/21 17:14 08/11/21 18:00 08/11/21 18:46 Temperature Temperature Source Pulse Rate 71 71 Respiratory Rate 18 18 Respiratory Effort Blood Pressure 127/81 H 127/81 H Blood Pressure Mean 96 Pulse Ox 100 100 Oxygen Delivery Method Room Air Positive well nourished General Appearance ED: NAD; Negative for pallor HEENT Reports moist mucous membranes Negative for trauma Eyes PERRL and EOMs intact bilaterally Resp normal respiratory effort and clear to auscultation bilaterally Cardio regular rate and regular rhythm GI normal to inspection, nondistended, normoactive bowel sounds Neuro oriented x3 and CN's II-XII intact bilaterally Sensorium / Orientation: alert Psych mental status grossly normal Mood & Affect: anxious Skin no rashes or lesions noted General Skin Exam: Negative for jaundice or pallor MDM MDM MDM Narrative Medical decision making narrative: Patient presenting with palpitations. She is concerned she may have low potassium secondary to the diarrhea. She denies chest pain or shortness of breath. She does admit to history of anxiety. Her primary care provider put her on something but she did not like it and does not want to take it. Is also grieving the recent loss of her mother. She feels that this could be a reason why she is having palpitations. She has been taking pressure medications at home. She wishes to be tested for COVID-19 because she has been around a lot of people. Her EKG interpreted by myself on arrival shows a normal sinus rhythm with a ventricular rate of [address] elevations or depressions. Review of the medical record shows that she recently had a similar work-up a little less than a month ago with a negative D-dimer and a negative troponin and her potassium was 3.3. She has been taking potassium supplements at home. Patient's rapid Covid is negative. Blood work is unremarkable. Troponin negative at 5 and the patient is not having any chest pain. Patient had a negative D-dimer less than a month ago. Clinically I am not suspicious of PE. Patient has no risk factors. Chest x-ray on my in terpretation shows no acute cardiopulmonary process and the radiologist does agree. Patient counseled on all findings and feels comfortable being discharged home at this time. She will follow up with her PCP or return for any new or worsening symptoms. Impression: 1. Palpitation Lab Data Attestation: I reviewed the patient's lab results. Labs: Laboratory Results - last 24 hr 08/11/21 08/11/21 16:21 16:21 WBC 12.0 H RBC 4.84 Hgb 15.0 Hct 44.4 MCV 91.7 MCH 31.0 MCHC 33.8 RDW Std Deviation 41.7 RDW Coeff of Cm 12.4 Plt Count 420 MPV 9.7 Immature Gran % (Auto) 0.300 Neut % (Auto) 82.8 H Lymph % (Auto) 13.7 L [place] % (Auto) 2.7 Eos % (Auto) 0.2 Baso % (Auto) 0.3 Absolute Neuts (auto) 9.9 H Absolute Lymphs (auto) 1.64 Nucleated RBC % 0 Sodium 138 Potassium 3.6 Chloride 102 Carbon Dioxide 27.0 Anion Gap 9 BUN 10 Creatinine 0.72 Estim Creat Clear Calc 82.65 Est GFR (MDRD) Af Amer 107 Est GFR (MDRD) Non-Af 89 BUN/Creatinine Ratio 13.8 Glucose 126 H Calcium 9.9 Troponin I High Sens 5 Radiography Diagnostic Testing: Clinical Impression(s) from Imaging Studies Chest X-Ray 08/11/21 17:00 IMPRESSION: Normal x-ray examination of the chest. Electronically Signed: Alexandria Templeton MD at 17:51 EDT Tel , Service support , Discharge Plan Triage Chief Complaint: Palpitations ED Provider: Ilan Valdes Dx/Rx/DC Orders Instructions: ED Palpitations Prescriptions: No Action aspirin 81 MG tablet 81 mg PO DAILY@0800 RF: 0 potassium chloride 20 mEq tablet,ER particles/crystals 20 meq PO DAILY RF: 0 valsartan-hydrochlorothiazide 80-12.5 mg tablet 1 tab PO DAILY RF: 0 Primary Care Provider: Faraz Gutierrez Chi Referrals: Faraz Gutierrez Chi, MD [Primary Care Provider] - Disposition Disposition: Home, Self Care Discharge Date/Time: 08/11/21 18:55
--- NOTE | 2021-08-11 17:00 | RAD_ITS ---
STUDY: X-RAY CHEST REASON FOR EXAM: Female, 55 years old. Palpitation TECHNIQUE: 2 frontal images of the chest were obtained COMPARISON: 07/09/2021 FINDINGS: The lungs are clear and expanded. There is no demonstrated pleural abnormality. Normal size heart. Normal mediastinum and vincent. Normal visualized pulmonary arteries. Normal visualized aortic arch and descending thoracic aorta. Normal visualized thoracic spine. Normal visualized ribs, clavicles, and shoulders. There is no demonstrated abnormality of the visualized soft tissue structures of the upper abdomen. RAD/Chest 1 View (Portable) IMPRESSION: Normal x-ray examination of the chest. Electronically Signed: Alexandria Templeton MD at 17:51 EDT Tel , Service support ,
[2021-08-11 17:14] VITALS: BP 127/81; PULSE 71; RESP 18; O2SAT 100
[2021-08-11 17:17] LABS: Absolute Lymphocyte Count 1.64 X10^3/uL (0.83-4.51); Absolute Neutrophil Count 9.9 X10^3/uL (2.0-7.7); Basophil# 0.04 X10^3/uL; Basophil% 0.3 % (0-1); Eosinophil# 0.02 X10^3/uL; Eosinophils% 0.2 % (0-5); Hematocrit 44.4 % (37-47); Lymphocyte # 1.64 X10^3/ul (0.83-4.51); Lymphocyte % 13.7 % (19-41); Mean Corp Hgb Conc 33.8 g/dL (32-36); Mean Corpuscular Volume 91.7 fL (81-99); Mean Platelet Vol. 9.7 fl (6.2-12.0); Monocyte# 0.32 X10^3/uL; Monocyte% 2.7 % (0-10); NRBC Flagged by Analyzer 0 % (0-5); Neutrophil # 9.89 X10^3/uL (2.7-7.7); Neutrophil % 82.8 % (47-70); Platelet Count 420 K/mm3 (150-450); RBC Distribution Width CV 12.4 % (11.6-14.6); RBC Distribution Width SD 41.7 fl (35.1-43.9); Red Blood Count 4.84 M/mm3 (4.2-5.4)
[2021-08-11 17:37] LABS: Anion Gap 9 (5-15); BUN 10 mg/dL (7-18); BUN/Creat Ratio 13.8 RATIO (10-20); Calcium,Total 9.9 mg/dL (8.5-10.1); Chloride 102 mmol/L (98-107); Creatinine, Serum 0.72 mg/dL (0.55-1.02); EST Glomerular Filtration Rate 89 mL/min (>60); Est Glom Filt Rate - Afr Amer 107 mL/min (>60); Estimated Creatinine Clearance 82.65 ml/min; Glucose 126 mg/dL (74-106); Potassium 3.6 mmol/L (3.5-5.1); Sodium Level 138 mmol/L (136-145); Troponin-I HS 5 pg/mL (3.0-54.0)
[2021-08-11 18:00] VITALS: PULSE 71; RESP 18; O2SAT 100
[2021-08-11 18:46] VITALS: BP 127/81
== END 2021-08-11 18:55 | disposition home or self-care (01) ==
PROVIDERS: Emergency Provider Student in an Organized Health Care Education/Training Program; PCP Family Medicine Geriatric Medicine
DX: R00.2 Palpitations (principal); R11.0 Nausea; R19.7 Diarrhea, unspecified; F41.9 Anxiety disorder, unspecified; I10 Essential (primary) hypertension; E87.6 Hypokalemia; G43.909 Migraine, unspecified, not intractable, without status migrainosus; Z79.82 Long term (current) use of aspirin; Z79.899 Other long term (current) drug therapy
CPT/HCPCS: 71045; 80048; 84484; 85025; 87426; 93005; 99285; A4216

== ENCOUNTER → 2021-08-13 11:30 | Outpatient (CLI) | payer OTHER, SELFPAY ==
[2021-08-13 13:12] LABS: Anion Gap 6 (5-15); BUN 12 mg/dL (7-18); BUN/Creat Ratio 16.3 RATIO (10-20); Calcium,Total 9.8 mg/dL (8.5-10.1); Chloride 101 mmol/L (98-107); Creatinine, Serum 0.73 mg/dL (0.55-1.02); EST Glomerular Filtration Rate 87 mL/min (>60); Est Glom Filt Rate - Afr Amer 106 mL/min (>60); Glucose 107 mg/dL (74-106); Potassium 3.7 mmol/L (3.5-5.1); Sodium Level 138 mmol/L (136-145)
== END ==
PROVIDERS: PCP Family Medicine Geriatric Medicine; Visit Provider Family Medicine Geriatric Medicine
DX: E87.6 Hypokalemia (principal)
CPT/HCPCS: 36415; 80048

== ENCOUNTER → 2021-09-15 10:32 | Outpatient (CLI) | payer OTHER, SELFPAY | PROVIDERS: PCP Family Medicine Geriatric Medicine; Referring Provider Internal Medicine Cardiovascular Disease; Visit Provider Internal Medicine Cardiovascular Disease | DX: R00.2 Palpitations (principal) | CPT/HCPCS: 36415; 82088; 84244 ==

== ENCOUNTER → 2021-09-29 09:53 | Outpatient (CLI) | payer OTHER, SELFPAY ==
--- NOTE | 2021-09-29 09:56 | ECHOD_ITS ---
Reason For Study: ARRHYTHMIA Procedure This was a 2D Doppler, Color Flow transthoracic echocardiogram. Exam performed in department. Left Ventricle Normal LV size. Left ventricular systolic function is normal. The estimated ejection fraction is 60 %. Normal diastology for age. No regional wall motion abnormalities noted. Right Ventricle Normal RV size. Normal systolic function. Atria Normal left atrium. Normal right atrium. Mitral Valve Normal mitral valve. Mild (1+) eccentric mitral valve insufficiency. Tricuspid Valve Normal tricuspid valve. Mild (1+) tricuspid valve insufficiency. Pulmonary artery systolic pressure is 33 mmHg. Aortic Valve Normal aortic valve. Trisinus/trileaflet aortic valve. Pulmonic Valve Normal pulmonic valve. Great Vessels Normal aortic root. The pulmonary artery is normal size. Normal inferior vena cava. Pericardium/Pleural No pericardial effusion. MMode/2D Measurements & Calculations LVIDd: 4.2 cm IVSd: 0.70 cm Ao root diam: 2.9 cm LVIDs: 2.7 cm LVPWd: 0.73 cm RVDd: 3.2 cm FS: 35.2 % LAV(MOD-bp): 51.8 ml LVAd ap4: 24.5 cm2 LVAd ap2: 23.3 cm2 LAV(MOD-bp) Indexed: 29.2 ml/m2 LVLd ap4: 7.0 cm LVLd ap2: 7.1 cm LAV(MOD-sp2): 40.5 ml EDV(MOD-sp4): 71.2 ml EDV(MOD-sp2): 64.8 ml LAV(MOD-sp4): 52.9 ml EDV(sp4-el): 73.4 ml EDV(sp2-el): 65.2 ml LVAs ap4: 13.5 cm2 LVAs ap2: 10.4 cm2 LVLs ap4: 5.8 cm LVLs ap2: 6.0 cm ESV(MOD-sp4): 25.9 ml ESV(MOD-sp2): 15.8 ml ESV(sp4-el): 26.3 ml ESV(sp2-el): 15.5 ml EF(MOD-sp4): 63.5 % EF(MOD-sp2): 75.5 % EF(sp4-el): 64.2 % SV(MOD-sp4): 45.2 ml SV(MOD-sp2): 48.9 ml SV(sp4-el): 47.1 ml LA dimension(2D): 3.1 cm LA A4 area: 18.8 cm2 RA A4 area: 12.0 cm2 Doppler Measurements & Calculations MV E max ramirez: 66.5 cm/sec Lat Peak E' Ramirez: 10.4 cm/sec Med Peak E' Ramirez: 8.3 cm/sec MV A max ramirez: 62.7 cm/sec E/E' lat: 6.4 E/E' med: 8.1 MV E/A: 1.1 Ao V2 max: 139.6 cm/sec LV V1 max: 89.9 cm/sec TR max ramirez: 270.5 cm/sec Ao max P.8 mmHg LV V1 max P.2 mmHg TR max P.3 mmHg ECHO/Echo Complete Interpretation Summary Normal LV size. Left ventricular systolic function is normal. The estimated ejection fraction is 60 %. Mild (1+) eccentric mitral valve insufficiency. Pulmonary artery systolic pressure is 33 mmHg. Normal diastology for age. Ordering Physician: Slade Grajeda Referring Physician: ARTUR RAYMOND Performed By: Joelle Keys, RDCS, RVT
== END ==
PROVIDERS: PCP Family Medicine Geriatric Medicine; Referring Provider Internal Medicine Cardiovascular Disease; Visit Provider Internal Medicine Cardiovascular Disease
DX: R00.2 Palpitations (principal); I10 Essential (primary) hypertension
CPT/HCPCS: 93306

== ENCOUNTER 2021-12-28 10:23 | Outpatient (CLI) | payer OTHER, SELFPAY ==
[2021-12-28 12:50] LABS: Absolute Lymphocyte Count 1.61 X10^3/uL (0.83-4.51); Absolute Neutrophil Count 8.8 X10^3/uL (2.0-7.7); Basophil# 0.05 X10^3/uL; Basophil% 0.5 % (0-1); Eosinophil# 0.12 X10^3/uL; Eosinophils% 1.1 % (0-5); Hematocrit 39.2 % (37-47); Hemoglobin 13.3 g/dL (12.0-15.0); Lymphocyte # 1.61 X10^3/ul (0.83-4.51); Lymphocyte % 14.5 % (19-41); Mean Corp Hgb Conc 33.9 g/dL (32-36); Mean Corpuscular Hgb 30.7 pg (27.0-32.0); Mean Corpuscular Volume 90.5 fL (81-99); Mean Platelet Vol. 9.8 fl (6.2-12.0); Monocyte# 0.52 X10^3/uL; Monocyte% 4.7 % (0-10); NRBC Flagged by Analyzer 0 % (0-5); Neutrophil # 8.75 X10^3/uL (2.7-7.7); Neutrophil % 78.9 % (47-70); Platelet Count 325 K/mm3 (150-450); RBC Distribution Width CV 12.6 % (11.6-14.6); RBC Distribution Width SD 41.8 fl (35.1-43.9); Red Blood Count 4.33 M/mm3 (4.2-5.4); White Blood Count 11.1 K/mm3 (4.4-11.0)
[2021-12-28 13:28] LABS: AST(SGOT) 18 U/L (15-37); Alanine Aminotransfer ALT/SGPT 36 U/L (13-56); Albumin, Serum 3.9 g/dL (3.2-5.0); Alkaline Phosphatase 110 U/L (45-117); Anion Gap 6 (5-15); BUN 19 mg/dL (7-18); BUN/Creat Ratio 24.7 RATIO (10-20); Calcium,Total 9.1 mg/dL (8.5-10.1); Chloride 104 mmol/L (98-107); Creatinine, Serum 0.77 mg/dL (0.55-1.02); EST Glomerular Filtration Rate 83 mL/min (>60); Est Glom Filt Rate - Afr Amer 100 mL/min (>60); Globulin 3.9 g/dL (2.2-4.2); Glucose 104 mg/dL (74-106); Potassium 3.3 mmol/L (3.5-5.1); Protein, Total 7.8 g/dL (6.4-8.2); Sodium Level 139 mmol/L (136-145); Thyroid Stim Hormone (TSH) 1.45 uIU/mL (0.358-3.74)
== END 2021-12-28 23:59 | disposition home or self-care (01) ==
LOC: POLAB3 10:24
PROVIDERS: PCP Family Medicine Geriatric Medicine; Visit Provider Family Medicine Geriatric Medicine
DX: I10 Essential (primary) hypertension (principal)
CPT/HCPCS: 36415; 80053; 84443; 85025

== ENCOUNTER 2021-12-30 12:16 | Outpatient (CLI) | payer OTHER, SELFPAY ==
[2021-12-30 13:05] LABS: Anion Gap 3 (5-15); BUN 12 mg/dL (7-18); BUN/Creat Ratio 17.4 RATIO (10-20); Calcium,Total 9.2 mg/dL (8.5-10.1); Chloride 103 mmol/L (98-107); Creatinine, Serum 0.69 mg/dL (0.55-1.02); EST Glomerular Filtration Rate 93 mL/min (>60); Est Glom Filt Rate - Afr Amer 113 mL/min (>60); Glucose 153 mg/dL (74-106); Potassium 3.4 mmol/L (3.5-5.1); Sodium Level 137 mmol/L (136-145)
== END 2021-12-30 23:59 | disposition home or self-care (01) ==
LOC: POLAB3 12:17
PROVIDERS: PCP Family Medicine Geriatric Medicine; Visit Provider Family Medicine Geriatric Medicine
DX: E87.6 Hypokalemia (principal); N39.0 Urinary tract infection, site not specified
CPT/HCPCS: 36415; 80048; 87086; 87088

== ENCOUNTER 2022-01-20 13:51 | Outpatient (CLI) | payer OTHER, SELFPAY | END 2022-01-20 23:59 | disposition home or self-care (01) | PROVIDERS: PCP Family Medicine Geriatric Medicine; Referring Provider Family Medicine Geriatric Medicine; Visit Provider Family Medicine Geriatric Medicine | DX: U07.1 COVID-19 (principal); R68.83 Chills (without fever) | CPT/HCPCS: 87635; 87804; 87807; C9803; U0003; U0005 ==

== ENCOUNTER → 2023-03-24 | Outpatient (CLI) | payer BC, SELFPAY ==
[2023-03-24 12:03] LABS: Absolute Lymphocyte Count 1.76 X10^3/uL (0.83-4.51); Absolute Neutrophil Count 8.3 X10^3/uL (2.0-7.7); Basophil# 0.05 X10^3/uL; Basophil% 0.5 % (0-1); Eosinophil# 0.11 X10^3/uL; Hematocrit 41.7 % (37-47); Hemoglobin 13.6 g/dL (12.0-15.0); Lymphocyte # 1.76 X10^3/ul (0.83-4.51); Lymphocyte % 16.4 % (19-41); Mean Corp Hgb Conc 32.6 g/dL (32-36); Mean Corpuscular Hgb 29.5 pg (27.0-32.0); Mean Corpuscular Volume 90.5 fL (81-99); Mean Platelet Vol. 9.6 fl (6.2-12.0); Monocyte# 0.48 X10^3/uL; Monocyte% 4.5 % (0-10); NRBC Flagged by Analyzer 0 % (0-5); Neutrophil # 8.31 X10^3/uL (2.7-7.7); Neutrophil % 77.2 % (47-70); Platelet Count 336 K/mm3 (150-450); RBC Distribution Width SD 43.2 fl (35.1-43.9); Red Blood Count 4.61 M/mm3 (4.2-5.4); White Blood Count 10.8 K/mm3 (4.4-11.0)
[2023-03-24 12:33] LABS: ALB/GLOB Ratio 0.9 RATIO (0.9-2.4); AST(SGOT) 14 U/L (15-37); Alanine Aminotransfer ALT/SGPT 28 U/L (13-56); Albumin, Serum 3.6 g/dL (3.2-5.0); Alkaline Phosphatase 120 U/L (45-117); Anion Gap 6 (5-15); BUN 17 mg/dL (7-18); BUN/Creat Ratio 22.6 RATIO (10-20); Calcium,Total 9.6 mg/dL (8.5-10.1); Chloride 107 mmol/L (98-107); Creatinine, Serum 0.75 mg/dL (0.55-1.02); EST Glomerular Filtration Rate 84 mL/min (>60); Est Glom Filt Rate - Afr Amer 102 mL/min (>60); Globulin 4.1 g/dL (2.2-4.2); Glucose 119 mg/dL (74-106); Potassium 3.6 mmol/L (3.5-5.1); Protein, Total 7.7 g/dL (6.4-8.2); Sodium Level 140 mmol/L (136-145); Thyroid Stim Hormone (TSH) 1.61 uIU/mL (0.358-3.74)
== END | disposition home or self-care (01) ==
PROVIDERS: PCP Family Medicine Geriatric Medicine; Referring Provider Family Medicine Geriatric Medicine; Visit Provider Family Medicine Geriatric Medicine
DX: R53.83 Other fatigue (principal)
CPT/HCPCS: 36415; 80053; 84443; 85025

== ENCOUNTER → 2023-03-29 | Outpatient (CLI) | payer BC, SELFPAY ==
--- NOTE | 2023-03-28 16:22 | BI_ITS ---
MAMMOGRAPHY - BILATERAL SCREENING REASON FOR EXAM: Female, 57 years old. Routine annual screening examination. PERTINENT HISTORY: Non-contributory. TECHNIQUE: Digital bilateral breast mariella (3D mammographic acquisition) in the CC and MLO projections. 2-D mediolateral oblique (MLO) and craniocaudad (CC) views of both breasts were obtained. CAD: Full Field Digital Mammography with Computer Added Detection was performed. COMPARISON: Comparison is made with prior study dated December 06, 2019 and April 29, 2011. FINDINGS: Breast Composition: There are scattered areas of fibroglandular density. There are no dominant masses or suspicious calcifications. No other significant abnormalities are identified. There has been no significant change since the prior study. BI/SCRN MAMM (CAD)W/MARIELLA BILAT IMPRESSION: Stable bilateral screening mammogram. Yearly follow-up mammogram recommended. (A) ASSESSMENT CATEGORY: BIRADS Category 1: Negative. A letter regarding these results will be sent to the patient by the facility within 30 days. Approximately 10% of breast cancers are not detected by mammography. A normal mammogram should not delay biopsy of a clinically suspicious abnormality. [id number] Electronically Signed: Remi Lopez MD at 8:59 EDT ,
== END | disposition home or self-care (01) ==
PROVIDERS: PCP Family Medicine Geriatric Medicine; Referring Provider Family Medicine Geriatric Medicine; Visit Provider Family Medicine Geriatric Medicine
DX: Z12.31 Encounter for screening mammogram for malignant neoplasm of breast (principal)
CPT/HCPCS: 77063; 77067

== ENCOUNTER 2024-03-07 19:43 | Emergency (ER) | payer SELFPAY ==
[2024-03-07 19:45] VITALS: BP 179/100; PULSE 106; RESP 17; TEMP 36.4; O2SAT 97; BMI 27.4
--- NOTE | 2024-03-07 20:05 | EDS_ITS ---
HPI History of Present Illness Chief Complaint: Itching Detail of Chief Complaint: Redness and swelling to right side of neck with itching Informant: patient Narrative Narrative: Patient presents the emergency department with redness and swelling to the right side of her neck. She states that 5 days ago she was in the basement and she felt itchy on the right side of her neck and she scratched it. Eventually she developed some erythema. There is no insect ever noted or any type of bite that she knows of. There is no tick. The redness has progressively increased and at times its uncomfortable and painful and at times it is itchy. Patient went to urgent care today and was referred to the emergency department. She had no fevers or chills or sweats. [facility] Medical History Anxiety Essential hypertension Feeling grief Hypokalemia Intermittent palpitations Migraines Home Medications ?Medication ?Instructions ?Recorded ?Last Taken ?Type valsartan 80 1 tab PO DAILY 07/09/21 Unknown History mg-hydrochlorothiazide 12.5 mg tablet metoprolol tartrate 25 mg tablet 25 mg PO BID 09/15/21 Unknown History potassium chloride 20 mEq 20 meq PO BID 09/15/21 Unknown History tablet,extended release(part/cryst) cephalexin 500 mg capsule 500 mg PO Q6 #40 CAPSULES 03/07/24 Unknown Rx prednisone 20 mg tablet 20 mg PO BID #6 tabs 03/07/24 Unknown Rx sulfamethoxazole 800 1 tab PO BID #14 TABLETS 03/07/24 Unknown Rx mg-trimethoprim 160 mg tablet Allergy/AdvReac Type Severity Reaction Status Date / Time codeine AdvReac Nausea/Vom/ Verified 03/07/24 19:48 Diarrhea morphine AdvReac Nausea/Vom/ Verified 03/07/24 19:48 Diarrhea Family History Mother Kidney disease Brother Diabetes Social History Smoking Status: Former smoker alcohol intake: current alcohol intake frequency: holidays/special occasions only substance use type: does not use caffeine: Yes Type: coffee Number of servings: 1 ROS ROS ED Review of Systems ROS Unobtainable: other Constitutional Constitutional ED: Reports lethargy; Denies chills, fever(s), sweats or weight loss Eyes Eyes: Denies blurry vision, change in vision or diplopia ENT ENT ED: Denies rhinorrhea or sore throat Cardiovascular Cardiovascular: Denies chest pain, orthopnea or racing heartbeat Respiratory/Chest Respiratory/Chest: Denies cough, dyspnea, dyspnea on exertion, orthopnea or sputum Gastrointestinal Gastrointestinal: Denies abdominal pain, diarrhea, nausea or vomiting Genitourinary Genitourinary ED: Denies dysuria, hematuria or urinary frequency Musculoskeletal Musculoskeletal: Denies arthralgias, back pain, myalgias or neck pain Integumentary Reports rash and other Details: Redness and swelling to right side of neck ; Denies abscess or Abrasions Neurologic Neurologic: Denies headache(s) or weakness Psychiatric Psychiatric: Denies anxiety, depression or suicidal thoughts Endocrine Endocrinology: Denies polydipsia, polyphagia or polyuria Hematologic/Lymphatic Hematologic/Lymphatic: Denies easy bleeding, easy bruising or lymphadenopathy Allergic/Immunologic Allergic/Immunologic ED: Denies mouth swelling, tongue swelling or urticaria EXAM Physical Exam Const Vital Signs: 03/07/24 19:45 Temperature 97.6 F L Temperature Source Temporal Pulse Rate 106 H Respiratory Rate 17 Blood Pressure 179/100 H Blood Pressure Mean 126 Pulse Ox 97 Oxygen Delivery Method Room Air Positive well nourished and well developed General Appearance ED: well developed and NAD HEENT Reports TM's clear and moist mucous membranes HEENT Narrative: Right neck-patient has an area of erythema somewhat oval in shape measuring approximately 6 x 4 cm. Skin slightly tender. No bull's-eye lesion noted. No fluctuance. No subcutaneous masses noted. normocephalic and atraumatic; Negative for trauma or tenderness Tympanic Membrane ED: Yes TM's clear Eyes PERRL and EOMs intact bilaterally General Eye ED: Negative for pale conjunctiva or scleral icterus Neck no lymphadenopathy, supple and no JVD General: Negative for tenderness Chest Wall inspection of chest normal and palpation of chest normal Chest: Negative for tenderness Resp normal respiratory effort and clear to auscultation bilaterally Effort and Inspection: Negative for respiratory distress or pain with movement Auscultation: Negative for rhonchi, wheezes or diminished lung sounds Cardio regular rate, regular rhythm, S1 normal heart sound, S2 normal heart sound and no murmurs Peripheral Pulses: pulses 2+ throughout GI normal to inspection, nondistended, normoactive bowel sounds, soft to palpation, non-tender, non-distended and no masses Back/Spine no CVA tenderness and no thoracic nor lumbar tenderness Extremity normal to inspection General Extremety ED: Negative for edema General Extremity: Negative for edema Neuro oriented x3, CN's II-XII intact bilaterally, no sensory deficits noted and gait normal Sensorium / Orientation: awake, alert, oriented to person, oriented to place and oriented to time Motor Exam: strength 5/5 throughout and strength abnormal Psych mental status grossly normal Skin no rashes or lesions noted and no wounds MDM MDM MDM Narrative Medical decision making narrative: Patient presents with redness and itching to the right side of the neck. Clinically I suspect likely insect bite or sting with inflammatory changes and cellulitis. Patient was started on Keflex and Bactrim. I will also start her on prednisone for 3 days. Advised to follow-up with primary care physician within next 3 to 5 days. She is to return if increasing pain, redness, swelling, or condition worsening way. Area of erythema outlined in marker. Discharge Plan Triage Chief Complaint: Itching ED Provider: Domenica Oneil Dx/Rx/DC Orders Clinical Impression: Insect bite, Cellulitis Instructions: ED Cellulitis, ED Insect Bite Prescriptions: New sulfamethoxazole-trimethoprim 800-160 mg tablet 1 tab PO BID Qty: 14 0RF cephalexin 500 mg capsule 500 mg PO Q6 Qty: 40 0RF prednisone 20 mg tablet 20 mg PO BID Qty: 6 0RF No Action metoprolol tartrate 25 mg tablet 25 mg PO BID potassium chloride 20 mEq tablet,ER particles/crystals 20 meq PO BID Patient Comments: TAKE 1 TABLET BY MOUTH DAILY valsartan-hydrochlorothiazide 80-12.5 mg tablet 1 tab PO DAILY Patient Comments: Take 1 Tablet orally once per day for 30 days Take at bedtime Primary Care Provider: Faraz Gutierrez Chi Referrals: Faraz Gutierrez Chi, MD [Primary Care Provider] - 3-5 Days Print Language: [place]erratian Disposition Disposition: Home, Self Care
[2024-03-07] MEDS: Smz/Tmp Ds Tablet 1 TABLET PO (20:10)
[2024-03-07] MEDS: Cephalexin 250 MG Capsule 500 MG PO (20:10)
[2024-03-07] MEDS: predniSONE 20 MG Tablet 40 MG PO (20:13)
[2024-03-07 21:01] VITALS: PULSE 88; RESP 16; TEMP 37; O2SAT 95
== END 2024-03-07 21:02 | disposition home or self-care (01) ==
LOC: ED 20:10
PROVIDERS: Emergency Provider Emergency Medicine; PCP Family Medicine Geriatric Medicine; Visit Provider Emergency Medicine
DX: L03.221 Cellulitis of neck (principal); Z87.891 Personal history of nicotine dependence; I10 Essential (primary) hypertension; Z79.899 Other long term (current) drug therapy; S10.86XA Insect bite of other specified part of neck, initial encounter; W57.XXXA Bitten or stung by nonvenomous insect and other nonvenomous arthropods, initial encounter; Y92.89 Other specified places as the place of occurrence of the external cause
CPT/HCPCS: 99283

== ENCOUNTER → 2024-04-01 | Outpatient (CLI) | payer SELFPAY ==
[2024-04-01 17:52] LABS: Absolute Lymphocyte Count 1.79 X10^3/uL (0.83-4.51); Absolute Neutrophil Count 6.9 X10^3/uL (2.0-7.7); Basophil# 0.04 X10^3/uL; Basophil% 0.4 % (0-1); Eosinophils% 1.1 % (0-5); Hemoglobin 13.3 g/dL (12.0-15.0); Lymphocyte # 1.79 X10^3/ul (0.83-4.51); Lymphocyte % 19.2 % (19-41); Mean Corp Hgb Conc 32.4 g/dL (32-36); Mean Corpuscular Hgb 29.4 pg (27.0-32.0); Mean Corpuscular Volume 90.5 fL (81-99); Mean Platelet Vol. 8.8 fl (6.2-12.0); Monocyte# 0.46 X10^3/uL; Monocyte% 4.9 % (0-10); NRBC Flagged by Analyzer 0 % (0-5); Neutrophil # 6.92 X10^3/uL (2.7-7.7); Neutrophil % 74.2 % (47-70); Platelet Count 409 K/mm3 (150-450); RBC Distribution Width CV 13.2 % (11.6-14.6); RBC Distribution Width SD 43.8 fl (35.1-43.9); Red Blood Count 4.53 M/mm3 (4.2-5.4); White Blood Count 9.3 K/mm3 (4.4-11.0)
[2024-04-01 19:26] LABS: ALB/GLOB Ratio 0.8 RATIO (0.9-2.4); AST(SGOT) 16 U/L (15-37); Alanine Aminotransfer ALT/SGPT 34 U/L (13-56); Albumin, Serum 3.7 g/dL (3.2-5.0); Alkaline Phosphatase 125 U/L (45-117); Anion Gap 7 (5-15); BUN 16 mg/dL (7-18); BUN/Creat Ratio 20.3 RATIO (10-20); Calcium,Total 9.8 mg/dL (8.5-10.1); Chloride 104 mmol/L (98-107); Creatinine, Serum 0.79 mg/dL (0.55-1.02); EST Glomerular Filtration Rate 80 mL/min (>60); Est Glom Filt Rate - Afr Amer 96 mL/min (>60); Globulin 4.5 g/dL (2.2-4.2); Glucose 120 mg/dL (74-106); Potassium 3.5 mmol/L (3.5-5.1); Protein, Total 8.2 g/dL (6.4-8.2); Sodium Level 139 mmol/L (136-145); Thyroid Stim Hormone (TSH) 1.18 uIU/mL (0.358-3.74)
[2024-04-04 13:08] LABS: Lyme IGG CIA Positive (Negative); Lyme IGM CIA Positive (Negative); Lyme Scn Total Ab w/Rflx Positive (Negative)
== END | disposition home or self-care (01) ==
LOC: LAB 17:13
PROVIDERS: PCP Family Medicine Geriatric Medicine; Referring Provider Family Medicine Geriatric Medicine; Visit Provider Family Medicine Geriatric Medicine
DX: I10 Essential (primary) hypertension (principal); W57.XXXA Bitten or stung by nonvenomous insect and other nonvenomous arthropods, initial encounter
CPT/HCPCS: 36415; 80053; 84443; 85025; 86618

== ENCOUNTER → 2025-03-27 | Outpatient (CLI) | payer BC, SELFPAY ==
--- NOTE | 2025-03-27 12:25 | BI_ITS ---
EXAM: SCRN MAMM (CAD)W/MARIELLA BILAT DATE: 03/27/2025 CLINICAL HISTORY: F, Age 59 y/o , SCREENING No family history. BREAST CANCER RISK ASSESSMENT: Not assessed. TECHNIQUE: Bilateral screening digital breast tomosynthesis with 2D and 3D images. Computer aided detection. COMPARISON: Prior exam(s) dated March 28, 2023.. FINDINGS: TISSUE DENSITY: The breast tissue is almost entirely fatty. Bilateral Breast Mammographic Findings: No significant masses, calcifications or other abnormalities are identified. Stable fat containing bilateral axillary lymph nodes. No suspicious masses, areas of developing architectural distortion, or suspicious calcifications. There has been no significant interval change. BI/SCRN MAMM (CAD)W/MARIELLA BILAT IMPRESSION: OVERALL FINAL ASSESSMENT: BIRADS 2 BENIGN FINDING RECOMMENDATION: Routine annual follow-up in 1 Year A letter with findings and recommendations will be mailed to the patient. Reading Location: [place] [id number]
== END | disposition home or self-care (01) ==
PROVIDERS: PCP Family Medicine Geriatric Medicine; Referring Provider Family Medicine Geriatric Medicine; Visit Provider Family Medicine Geriatric Medicine
DX: Z12.31 Encounter for screening mammogram for malignant neoplasm of breast (principal)
CPT/HCPCS: 77063; 77067

== ENCOUNTER → 2025-04-08 | Outpatient (CLI) | payer BC, SELFPAY ==
[2025-04-08 12:39] LABS: Absolute Lymphocyte Count 1.49 X10^3/uL (0.83-4.51); Absolute Neutrophil Count 7.1 X10^3/uL (2.0-7.7); Basophil# 0.05 X10^3/uL; Basophil% 0.5 % (0-1); Eosinophils% 1.1 % (0-5); Hematocrit 39.3 % (37-47); Hemoglobin 13.7 g/dL (12.0-15.0); Lymphocyte # 1.49 X10^3/ul (0.83-4.51); Lymphocyte % 16.3 % (19-41); Mean Corp Hgb Conc 34.9 g/dL (32-36); Mean Corpuscular Hgb 30.6 pg (27.0-32.0); Mean Corpuscular Volume 87.9 fL (81-99); Mean Platelet Vol. 9.4 fl (6.2-12.0); Monocyte# 0.38 X10^3/uL; Monocyte% 4.2 % (0-10); NRBC Flagged by Analyzer 0 % (0-5); Neutrophil % 77.7 % (47-70); Platelet Count 326 K/mm3 (150-450); RBC Distribution Width CV 13.1 % (11.6-14.6); RBC Distribution Width SD 42.5 fl (35.1-43.9); Red Blood Count 4.47 M/mm3 (4.2-5.4); White Blood Count 9.1 K/mm3 (4.4-11.0)
[2025-04-08 13:28] LABS: ALB/GLOB Ratio 1.4 RATIO (0.9-2.4); AST(SGOT) 19 U/L (<=31); Alanine Aminotransfer ALT/SGPT 21 U/L (<=34); Albumin, Serum 4.3 g/dL (3.5-5.0); Alkaline Phosphatase 118 U/L (35-104); Anion Gap 12 (5-15); BUN 15 mg/dL (4-19); BUN/Creat Ratio 20.8 RATIO (10-20); Carbon Dioxide 24.4 mmol/L (21.0-32.0); Chloride 105 mmol/L (98-108); Creatinine, Serum 0.72 mg/dL (0.70-1.20); EST Glomerular Filtration Rate 97 (>60); Glucose 145 mg/dL (70-99); Potassium 3.6 mmol/L (3.3-5.1); Protein, Total 7.3 g/dL (5.9-8.4); Sodium Level 141 mmol/L (133-145); Total Bilirubin 0.28 mg/dL (0.00-1.30)
== END | disposition home or self-care (01) ==
LOC: LAB 11:49
PROVIDERS: PCP Family Medicine Geriatric Medicine; Referring Provider Family Medicine Geriatric Medicine; Visit Provider Family Medicine Geriatric Medicine
DX: I10 Essential (primary) hypertension (principal)
CPT/HCPCS: 36415; 80053; 84443; 85025